=== PATIENT | female | born 1950 | race Caucasian/White ===

== ENCOUNTER 2020-12-23 12:42 | Inpatient (IN) | payer MEDICARE, BC ==
[~2020-12-23] VITALS: Ht 165.1 cm; Wt 94.8 kg
[~2020-12-23 12:42] MED LIST: AFRIN; ASPIRIN CHEWABL81 MG PO; COZAAR50 MG PO; LIPITOR TAB 2020 MG PO; LOPRESSOR50 MG PO; MICROZIDE12.5 MG PO; PRILOSEC OTC20 MG PO
[2020-12-23 17:30] LABS: HEMOGLOBIN 14.5 gm/dl (12.3-15.3); RED BLOOD COUNT 4.91 M/UL (4.00-5.10); WHITE BLOOD COUNT 8.9 K/UL (4.5-11.0)
[2020-12-23 19:15] LABS: BUN/CREATININE RATIO 25 (0-10)
[2020-12-25 03:37] LABS: HEMOGLOBIN 12.7 gm/dl (12.3-15.3)
[2020-12-25 03:46] LABS: RED BLOOD COUNT 4.2 M/UL (4.00-5.10); WHITE BLOOD COUNT 5.4 K/UL (4.5-11.0)
[2020-12-25 04:03] LABS: BUN/CREATININE RATIO 15 (0-10)
== END 2020-12-25 19:19 | disposition home or self-care (01) | DRG 281 ==
LOC: ER1 12:42 → CDU 12-24 00:29 → MED SURG 4 12-24 18:32
PROVIDERS: Emergency Medicine; ADMIT Internal Medicine
PROC: 4A023N7 Measurement of Cardiac Sampling and Pressure, Left Heart, Percutaneous Approach (ICD-10-PCS; principal; 2020-12-24)
PROC: B215YZZ Fluoroscopy of Left Heart using Other Contrast (ICD-10-PCS; 2020-12-24)
PROC: B211YZZ Fluoroscopy of Multiple Coronary Arteries using Other Contrast (ICD-10-PCS; 2020-12-24)
PROC: B41FYZZ Fluoroscopy of Right Lower Extremity Arteries using Other Contrast (ICD-10-PCS; 2020-12-24)
DX: I21.4 Non-ST elevation (NSTEMI) myocardial infarction (principal); I47.1 Supraventricular tachycardia; E87.6 Hypokalemia; I10 Essential (primary) hypertension; I25.119 Atherosclerotic heart disease of native coronary artery with unspecified angina pectoris; E66.9 Obesity, unspecified; E78.5 Hyperlipidemia, unspecified; K21.9 Gastro-esophageal reflux disease without esophagitis; Z20.822 Contact with and (suspected) exposure to COVID-19; I34.0 Nonrheumatic mitral (valve) insufficiency; I25.2 Old myocardial infarction; Z85.3 Personal history of malignant neoplasm of breast; Z90.49 Acquired absence of other specified parts of digestive tract; Z82.49 Family history of ischemic heart disease and other diseases of the circulatory system; Z90.11 Acquired absence of right breast and nipple; Z79.82 Long term (current) use of aspirin; Z79.899 Other long term (current) drug therapy; Z68.34 Body mass index [BMI] 34.0-34.9, adult
CPT/HCPCS: ECHO; 36415; 71045; 80048; 80053; 80061; 82550; 82553; 83735; 83874; 83880; 84132; 84484; 85025; 85730; 90471; 93005; 93306; 96365; 96375; 99152; 99153; 99285; C1760; C1769; J1644; J2250; J2270; J2550; J3010; J7040; Q9963; Q9967; U0002